=== PATIENT | female | born 1990 | race Caucasian/White ===

== ENCOUNTER 2021-10-05 16:30 | Emergency (ER) | payer OTHER | END 2021-10-05 17:31 | disposition home or self-care (01) | LOC: ER1 16:30 | PROVIDERS: Emergency Medicine | DX: Z02.83 Encounter for blood-alcohol and blood-drug test (principal); Z88.1 Allergy status to other antibiotic agents; F17.200 Nicotine dependence, unspecified, uncomplicated | CPT/HCPCS: 80307; 99281 ==

== ENCOUNTER 2021-11-03 20:30 | Emergency (ER) | payer OTHER | END 2021-11-03 21:17 | disposition left against medical advice (07) | LOC: ER1 20:30 | DX: Z53.21 Procedure and treatment not carried out due to patient leaving prior to being seen by health care provider (principal) ==